=== PATIENT | male | born 1985 | race African-American/Black ===

== ENCOUNTER → 2016-12-10 | Outpatient (CLI) | payer OTHER ==
[2016-12-10 10:16] LABS: CSF GLUCOSE 57 mg/dL (40-70); CSF PROTEIN 42 mg/dL (15-45)
[2016-12-10 11:36] LABS: MANUAL DIFF NO; NUMBER OF TUBES 4; VOLUME 16 ml
[2016-12-10 11:37] LABS: CSF CLARITY CLEAR; CSF COLOR COLORLESS; CSF WBC 0 /mm3 (0-10)
[2016-12-12 13:09] LABS: CSF IgG 2.4 mg/dL (0.0-8.6)
== END ==
LOC: RAD 08:07
PROVIDERS: Psychiatry & Neurology Neurology
DX: H47.11 Papilledema associated with increased intracranial pressure (principal)